=== PATIENT | male | born 1960 | race African-American/Black ===

== ENCOUNTER 2018-12-23 06:34 | Day surgery (SDC) | payer MEDICAID ==
[~2018-12-23] VITALS: Ht 165.1 cm; Wt 88.9 kg
[~2018-12-23 06:34] MED LIST: ASPI-1159 PO; CLOP75TA16 PO; CYCLOPENTOLATE HCL 1% OPHTH DROPS 2ML RIGHTEYE ONE; INSHUMSS SUBCUT; INSU100I28 SQ; METF-416 PO; PHENYLEPHRINE HCL 10% OPHTH DROPS 5ML RIGHTEYE ONE; TROPICAMIDE 1% OPHTH DROPS 15ML RIGHTEYE ONE
[2018-12-23] MEDS ORDERED: BALANCED SALT IRRIG SOLN COMB1 500ML OP SCH (06:45)
[2018-12-23] MEDS ORDERED: HYALURONATE SODIUM 14 MG/ML 0.85ML SYRINGE IO ONE ×3 (06:58→08:42)
[2018-12-23] MEDS ORDERED: PROPOFOL 200MG/20ML VIAL IV ONE (08:58)
[2018-12-23] MEDS ORDERED: MIDAZOLAM HCL 2 MG/2 ML VIAL ONE (08:58)
[2018-12-23] MEDS ORDERED: FENTANYL CITRATE/PF 50MCG/ML 2ML VIAL ONE (08:58)
[2018-12-23] MEDS ORDERED: ACET500C42 PO (09:03)
[2018-12-23] MEDS ORDERED: ATOR40TA70 PO (09:03)
[2018-12-23] MEDS ORDERED: ERGO2000 PO (09:03)
[2018-12-23] MEDS ORDERED: LISI-186 PO (09:03)
[2018-12-23] MEDS ORDERED: SITA100T11 MT (09:03)
[2018-12-23] MEDS ORDERED: GABA-290 PO (09:03)
[2018-12-23] MEDS ORDERED: METH-612 PO (09:03)
[2018-12-23] MEDS ORDERED: DEXAMETHASONE 4MG/ML 1ML VIAL ONE (09:11)
[2018-12-23] MEDS ORDERED: MEPERIDINE HCL/PF 25MG/ML CPJ IV PRN (09:15)
[2018-12-23] MEDS ORDERED: ONDANSETRON HCL 4MG/2ML INJ IV PRN (09:15)
[2018-12-23] MEDS ORDERED: LABETALOL 5MG/ML SYR 20 MG/4 ML SYRINGE IV PRN (09:15)
[2018-12-23] MEDS ORDERED: HYDROMORPHONE HCL/PF 2MG/ML CPJ IV PRN (09:15)
[2018-12-23] MEDS ORDERED: LIDOCAINE HCL/PF 1% 10 MG/ML 5ML VIAL ONE (09:24)
[2018-12-23] MEDS ORDERED: GENTAMICIN SULF 40MG/ML 2ML VIAL ONE (12:56)
[2018-12-23] MEDS ORDERED: LIDOCAINE HCL/PF 2% 20 MG/ML 10ML VIAL ONE (12:56)
[2018-12-23] MEDS ORDERED: PREDNISOLONE ACETATE 1% OPHTH DROPS 1ML ONE (12:56)
[2018-12-23] MEDS ORDERED: BALANCED SALT IRRIG SOLN 15ML ONE (12:56)
[2018-12-23] MEDS ORDERED: LIDOCAINE HCL 2%/EPINEPHRINE 1:100,000 20 ML VIAL INFIL ONE (12:56)
[2018-12-23] MEDS ORDERED: CIPROFLOXACIN 0.3% OPHTH SOLN 2.5ML ONE (12:56)
[2018-12-23] MEDS ORDERED: BUPIVACAINE HCL/PF 0.75% (7.5MG/ML) 10ML ONE (12:56)
[2018-12-23] MEDS ORDERED: ACETYLCHOLINE CHLORIDE INTRAOCULAR SOLUTION 1:100 ELECTROLYTE DILUENT IO ONE (12:56)
== END 2018-12-23 12:30 | disposition home or self-care (01) ==
LOC: OR 06:34
PROVIDERS: ATTEND Ophthalmology
DX: H40.9 Unspecified glaucoma (principal); H25.89 Other age-related cataract; H21.541 Posterior synechiae (iris), right eye; Z86.73 Personal history of transient ischemic attack (TIA), and cerebral infarction without residual deficits; Z79.01 Long term (current) use of anticoagulants
CPT/HCPCS: 66170; 66982; 82962; J1100; J1580; J2250; J2405; J2704; J3010; J3490; V2632

== ENCOUNTER → 2020-09-16 | Outpatient (CLI) | payer MEDICAID ==
[~2020-09-16] MED LIST changes: +ACET500C47 PO; -ASPI-1159 PO; +ASPI-1497 PO; +ATOR40TA70 PO; -CLOP75TA16 PO; +CLOP75TA4 PO; -CYCLOPENTOLATE HCL 1% OPHTH DROPS 2ML RIGHTEYE ONE; +ERGO2000 PO; +GABA-290 PO; +LISI-186 PO; +METH-612 PO; -PHENYLEPHRINE HCL 10% OPHTH DROPS 5ML RIGHTEYE ONE; +SITA100T11 MT; -TROPICAMIDE 1% OPHTH DROPS 15ML RIGHTEYE ONE
== END | disposition home or self-care (01) ==
LOC: LAB 11:11
PROVIDERS: ATTEND Ophthalmology
DX: Z01.812 Encounter for preprocedural laboratory examination (principal); Z20.828 Contact with and (suspected) exposure to other viral communicable diseases
CPT/HCPCS: C9803; U0003

== ENCOUNTER 2020-09-20 06:36 | Day surgery (SDC) | payer MEDICAID ==
[~2020-09-20] VITALS: Ht 165.1 cm; Wt 88.9 kg
[~2020-09-20 06:36] MED LIST changes: +SODIUM CHLORIDE 0.9% 1,000 ML IV SCH
[2020-09-20] MEDS ORDERED: HYALURONATE SODIUM 10 MG/ML 0.55ML SYRINGE IO ONE ×2 (07:24→08:53)
[2020-09-20] MEDS ORDERED: BALANCED SALT IRRIG SOLN COMB1 500ML OP SCH (07:30)
[2020-09-20] MEDS ORDERED: INSULIN REGULAR (HUMULIN R) UD 100 UNITS/ML SYR SUBCUT ONE (07:30)
[2020-09-20] MEDS ORDERED: INSULIN REGULAR (HUMULIN R) 300UNITS/3ML VIAL ONE (07:36)
[2020-09-20] MEDS ORDERED: PHENYLEPHRINE HCL 10% OPHTH DROPS 5ML ONE (09:00)
[2020-09-20] MEDS ORDERED: TROPICAMIDE 1% OPHTH DROPS 15ML ONE (09:00)
[2020-09-20] MEDS ORDERED: CYCLOPENTOLATE HCL 1% OPHTH DROPS 2ML ONE (09:00)
[2020-09-20] MEDS ORDERED: PREDNISOLONE ACETATE 1% OPHTH DROPS 5ML ONE (09:00)
[2020-09-20] MEDS ORDERED: BUPIVACAINE HCL/PF 0.75% (7.5MG/ML) 10ML ONE (09:00)
[2020-09-20] MEDS ORDERED: LIDOCAINE HCL/PF 2% 20 MG/ML 10ML VIAL ONE (09:00)
[2020-09-20] MEDS ORDERED: TETRACAINE 0.5% OPHTH DROPS 4ML ONE (09:00)
[2020-09-20] MEDS ORDERED: BALANCED SALT IRRIG SOLN 15ML ONE (09:00)
[2020-09-20] MEDS ORDERED: CIPROFLOXACIN 0.3% OPHTH SOLN 2.5ML ONE (09:00)
[2020-09-20] MEDS ORDERED: LIDOCAINE HCL 2%/EPINEPHRINE 1:100,000 20 ML VIAL INFIL ONE (09:00)
[2020-09-20] MEDS ORDERED: HYDROMORPHONE HCL/PF 2MG/ML CPJ IV PRN (09:45)
== END 2020-09-20 10:40 | disposition home or self-care (01) ==
LOC: OR 06:36
PROVIDERS: ATTEND Ophthalmology
DX: E11.36 Type 2 diabetes mellitus with diabetic cataract (principal); H25.89 Other age-related cataract; E66.9 Obesity, unspecified; I10 Essential (primary) hypertension; Z86.73 Personal history of transient ischemic attack (TIA), and cerebral infarction without residual deficits; Z79.82 Long term (current) use of aspirin; Z79.4 Long term (current) use of insulin; Z79.899 Other long term (current) drug therapy; Z98.890 Other specified postprocedural states
CPT/HCPCS: 66982; 82962; J3490; V2632; J1815